=== PATIENT | female | born 1975 | race Caucasian/White ===

== ENCOUNTER → 2020-11-17 | Outpatient (CLI) | payer MEDICARE, OTHER ==
[~2020-11-17] MED LIST: BENZTROPINE ME0.5 MG PO; CELEXA20 MG PO; COPAXONE40 MG/1 ML SQ; ECOTRIN81 MG PO; GABAPENTIN300 MG PO; IBUPROFEN800 MG PO; PROTONIX40 MG PO; RITALIN TAB 1010 MG PO; VITAMIN C 500500 MG PO; VITAMIN D31000 UNI1 PO; ZANTAC150 MG PO; ZOFRAN4 MG PO
== END ==
LOC: EMI 13:42
DX: G35 Multiple sclerosis (principal); G37.9 Demyelinating disease of central nervous system, unspecified
CPT/HCPCS: 70553; A9577